=== PATIENT | female | born 1990 | race Caucasian/White ===

== ENCOUNTER 2017-01-11 11:05 | Emergency (ER) | payer SELFPAY ==
[~2017-01-11] VITALS: Ht 167.6 cm; Wt 66.0 kg
[2017-01-11] MEDS ORDERED: LORAZEPAM 2MG/ML CPJ IV ONE (12:15)
[2017-01-11 12:33] LABS: CLARITY URINE CLOUDY (CLEAR); COLOR URINE YELLOW (YELLOW); GLUCOSE URINE NEGATIVE (NEGATIVE); KETONES URINE NEGATIVE (NEGATIVE); LEUKOCYTE ESTERASE URINE TRACE (NEGATIVE); NITRITE URINE NEGATIVE (NEGATIVE); OCCULT BLOOD URINE 3+ (NEGATIVE); PROTEIN URINE NEGATIVE (NEGATIVE); SPECIFIC GRAVITY URINE 1.019 (1.005-1.030); UROBILINOGEN URINE 0.2 E.U./dL (0.2-1.0)
[2017-01-11 12:33] LABS: BASOPHILS % 0.2 % (0.0-2.0); HEMATOCRIT. 35.8 % (36.0-48.0); HEMOGLOBIN. 11.8 g/dL (12.0-16.0); LYMPHOCYTES % 9.2 % (20.0-50.0); MEAN CORPUSCULAR HEMOGLOBIN 26.5 pg (28.0-32.0); MEAN PLATELET VOLUME 7.4 fl (7.4-10.4); MONOCYTES % 4.3 % (2.0-8.0); NEUTROPHILS % 86.3 % (40.0-76.0); PLATELET 376 x1000/uL (130-400); RED BLOOD CELL COUNT 4.47 mill/uL (4.2-5.4)
[2017-01-11 12:42] LABS: HCG SCREEN NEGATIVE
[2017-01-11 12:44] LABS: CARBON DIOXIDE 25 mEq/L (21-32); CHLORIDE 108 mEq/L (98-107)
[2017-01-11 12:44] LABS: *AMPHETAMINES SCREEN URINE NEGATIVE (NEGATIVE); *BARBITURATES SCREEN URINE NEGATIVE (NEGATIVE); *BENZODIAZEPINES SCREEN URINE NEGATIVE (NEGATIVE); METHADONE URINE SCREEN NEGATIVE (NEGATIVE); OPIATES URINE SCREEN NEGATIVE (NEGATIVE); PHENCYCLIDINE URINE SCREEN NEGATIVE (NEGATIVE)
[2017-01-11 12:46] LABS: *COCAINE SCREEN URINE PRESUMTIVE POSITIVE (NEGATIVE); CANNABINOID URINE SCREEN PRESUMTIVE POSITIVE (NEGATIVE)
[2017-01-11 12:49] LABS: TROPONIN I 0.03 ng/mL (0.00-0.04)
[2017-01-11] MEDS ORDERED: DILTIAZEM HCL 5MG/ML 5ML VIAL IV ONE (16:00)
[2017-01-11] MEDS ORDERED: SODIUM CHLORIDE 0.9% 1,000 ML IV ONE (16:00)
[2017-01-11 18:30] VITALS: BP 112/68
== END 2017-01-11 19:09 | disposition home or self-care (01) ==
LOC: ER 11:12
DX: F14.10 Cocaine abuse, uncomplicated (principal); R20.0 Anesthesia of skin; R06.02 Shortness of breath; R11.2 Nausea with vomiting, unspecified; R07.89 Other chest pain
CPT/HCPCS: 36415; 71010; 80053; 80305; 81001; 83605; 84484; 84703; 85025; 87040; 93005; 96361; 96374; 96375; 99285; J2060; J3490; J7030; Z7610

== ENCOUNTER 2019-07-22 21:56 | Emergency (ER) | payer BC, OTHER ==
[~2019-07-22] VITALS: Ht 154.9 cm; Wt 61.0 kg
[2019-07-22] MEDS ORDERED: KETOROLAC 30MG/ML VIAL IV STA (22:56)
[2019-07-22] MEDS ORDERED: SODIUM CHLORIDE 0.9% 1,000 ML IV ONE (22:56)
[2019-07-22 23:18] LABS: BASOPHILS % 0.4 % (0.0-2.0); EOSINOPHILS % 0.9 % (0.0-5.0); LYMPHOCYTES % 32.1 % (20.0-50.0); MEAN CORPUSCULAR HEMOGLOBIN 29.9 pg (28.0-32.0); MEAN CORPUSCULAR VOLUME 87.4 fL (81.0-99.0); MEAN PLATELET VOLUME 7.4 fl (7.4-10.4); MONOCYTES % 6.8 % (2.0-8.0); NEUTROPHILS % 59.8 % (40.0-76.0); PLATELET 396 x1000/uL (130-400); RED BLOOD CELL COUNT 4.35 mill/uL (4.2-5.4); RED CELL DISTRIBUTION WIDTH 13.9 % (11.6-14.6)
[2019-07-22 23:24] LABS: CHLORIDE 103 mEq/L (98-107)
[2019-07-22 23:49] LABS: CLARITY URINE CLEAR (CLEAR); COLOR URINE YELLOW (YELLOW); KETONES URINE NEGATIVE (NEGATIVE); LEUKOCYTE ESTERASE URINE NEGATIVE (NEGATIVE); NITRITE URINE NEGATIVE (NEGATIVE); OCCULT BLOOD URINE NEGATIVE (NEGATIVE); PH URINE >=9.0 (4.5-8.0); PROTEIN URINE 1+ (NEGATIVE); SPECIFIC GRAVITY URINE 1.019 (1.005-1.030)
[2019-07-23 02:08] VITALS: BP 110/63
== END 2019-07-23 02:08 | disposition home or self-care (01) ==
LOC: ER 21:56
DX: R10.31 Right lower quadrant pain (principal); Z87.442 Personal history of urinary calculi
CPT/HCPCS: 36415; 74176; 80053; 81003; 81025; 83690; 85025; 96374; 99284; J1885; J7030

== ENCOUNTER 2020-03-17 19:55 | Emergency (ER) | payer BC ==
[~2020-03-17] VITALS: Ht 154.9 cm; Wt 66.0 kg
[2020-03-17] MEDS ORDERED: SODIUM CHLORIDE 0.9% 1,000 ML IV ONE (20:45)
[2020-03-17] MEDS ORDERED: PROCHLORPERAZINE 10MG/2ML VIAL IV ONE (20:45)
[2020-03-17] MEDS ORDERED: ACETAMINOPHEN 650MG/20.3ML UDC PO ONE (20:45)
[2020-03-17] MEDS ORDERED: DIPHENHYDRAMINE 50MG/ML VIAL IV ONE (20:45)
[2020-03-17] MEDS ORDERED: KETOROLAC 15MG/ML VIAL IV ONE (20:45)
[2020-03-17 22:42] LABS: BASOPHILS % 0.5 % (0.0-2.0); EOSINOPHILS % 0.7 % (0.0-5.0); HEMATOCRIT. 36.9 % (36.0-48.0); LYMPHOCYTES % 17.5 % (20.0-50.0); MEAN CORPUSCULAR HEMOGLOBIN 27.2 pg (28.0-32.0); MEAN CORPUSCULAR VOLUME 83.3 fL (81.0-99.0); MEAN PLATELET VOLUME 7.5 fl (7.4-10.4); MONOCYTES % 7.1 % (2.0-8.0); NEUTROPHILS % 74.2 % (40.0-76.0); PLATELET 354 x1000/uL (130-400); RED BLOOD CELL COUNT 4.43 mill/uL (4.2-5.4); RED CELL DISTRIBUTION WIDTH 14.6 % (11.6-14.6)
[2020-03-17 22:50] LABS: CHLORIDE 107 mEq/L (98-107)
[2020-03-17 23:00] LABS: B-HCG QUANTITATIVE < 1 mIU/mL (<3)
[2020-03-18] MEDS ORDERED: IOHEXOL-350 100 ML BOTTLE ONE (00:01)
[2020-03-18 02:00] VITALS: BP 117/71
== END 2020-03-18 02:34 | disposition home or self-care (01) ==
LOC: ER 19:55
DX: R51.9 Headache, unspecified (principal); R20.0 Anesthesia of skin
CPT/HCPCS: 36415; 70496; 70498; 80053; 84702; 85025; 93005; 96361; 96374; 96375; 99285; J0780; J1200; J1885; J7030; Q9967

== ENCOUNTER 2021-08-25 20:45 | Emergency (ER) | payer BC ==
[~2021-08-25] VITALS: Ht 154.9 cm; Wt 82.0 kg
[2021-08-25] MEDS ORDERED: ONDANSETRON 4MG ODT PO ONE (22:45)
[2021-08-26] MEDS ORDERED: ONDA4TAB50 MT (00:11)
[2021-08-26] MEDS ORDERED: PRED10TA23 MT (00:12)
[2021-08-26 00:20] VITALS: BP 128/85
== END 2021-08-26 00:20 | disposition home or self-care (01) ==
LOC: ER 20:45
DX: R06.02 Shortness of breath (principal); R11.2 Nausea with vomiting, unspecified
CPT/HCPCS: 71045; 81025; 93005; 99283; Q0162